=== PATIENT | female | born 1985 | race Caucasian/White ===

== ENCOUNTER 2022-07-01 23:04 | Emergency (ER) | payer OTHER ==
[~2022-07-01] VITALS: Ht 154.9 cm; Wt 68.0 kg
--- NOTE | 2022-07-01 23:10 | NUR ---
DR Polk at bedside MSE in progress
[2022-07-01 23:55] LABS: HEMATOCRIT 35.6 % (31.2-41.9); MEAN CORPUSCULAR HEMOGLOBIN 30.1 uug (24.7-32.8); MEAN CORPUSCULAR VOLUME 91.2 fL (75.5-95.3); PLATELET COUNT (AUTO) 297 K/uL (179-408)
[2022-07-02 00:04] LABS: CARBON DIOXIDE 28 mmol/L (21-32); CHLORIDE 107 mmol/L (98-107); CREATININE 0.8 mg/dL (0.6-1.3); ETHANOL < 3 MG/DL (0-0); GLUCOSE 97 mg/dL (74-106); POTASSIUM 4.3 mmol/L (3.5-5.1); UREA NITROGEN, BLOOD 10 mg/dL (7-18)
[2022-07-02 00:08] LABS: ACETAMINOPHEN 2.5 ug/mL (10-30); ALANINE AMINOTRANSFERASE 10 U/L (14-59); ALKALINE PHOSPHATASE 62 U/L (50-136); ASPARTATE AMINOTRANSFERASE 10 U/L (15-37); BILIRUBIN,DIRECT 0.1 mg/dL (0.0-0.2); BILIRUBIN,TOTAL 0.2 mg/dL (0.2-1.0); CREATINE KINASE, TOTAL 84 U/L (26-192); TOTAL PROTEIN, SERUM 7.2 g/dL (6.4-8.2)
[2022-07-02 00:50] LABS: *BLOOD, URINE 3+ (NEGATIVE); *KETONES,URINE NEGATIVE (NEGATIVE); LEUKOCYTE ESTERASE ,URINE 3+ (NEGATIVE); NITRITE, URINE NEGATIVE (NEGATIVE); PH,URINE 6.5 (5.0-8.0); UGLUCOSE NEGATIVE (NEGATIVE)
[2022-07-02 00:52] LABS: *AMPHETAMINE, URINE POSITIVE (NEGATIVE); *CANNABINOID, URINE NEGATIVE (NEGATIVE); *COCCAINE, URINE NEGATIVE (NEGATIVE); *OPIATE, URINE NEGATIVE (NEGATIVE); *PHENCYCLIDINE SCREEN,URINE NEGATIVE (NEGATIVE)
[2022-07-02 00:58] LABS: *BILIRUBIN,URIN 1+ (NEGATIVE); *CLARITY,URINE CLOUDY (CLEAR); *COLOR,URINE RED (YELLOW)
--- NOTE | 2022-07-02 00:59 | NUR ---
Called drying tumbler operator Juan Antonio for psych eval
[2022-07-02 01:17] LABS: BACTERIA,URINE MANY /HPF (NONE SEEN); RBC,URINE TNTC /HPF (0-3); SQUAMOUS EPITHELIAL CELL,UR FEW /HPF (NONE SEEN); WBC,URINE TNTC /HPF (0-3)
[2022-07-02 01:18] LABS: *URINE HCG, QUAL NEGATIVE (NEGATIVE)
--- NOTE | 2022-07-02 01:32 | NUR ---
hearing aid technician Juan Antonio at bedside, psych eval in progress
[2022-07-02] MEDS ORDERED: NITR100C11 PO (03:18)
[2022-07-02] MEDS ORDERED: LIDOCAINE HCL 1% 20 ML VIAL ONE (03:25)
[2022-07-02] MEDS ORDERED: CEFTRIAXONE 500 MG VIAL ONE (03:27)
[2022-07-02] MEDS ORDERED: AZITHROMYCIN 250 MG TABLET ONE (03:28)
[2022-07-02] MEDS ORDERED: AZITHROMYCIN 250 MG TABLET PO ONE (03:30)
[2022-07-02] MEDS ORDERED: CEFTRIAXONE 500 MG VIAL IM ONE (03:30)
--- NOTE | 2022-07-02 03:49 | NUR ---
Patient discharged to home in stable condition. Written and verbal after care instructions given. Patient verbalizes understanding of instructions. Stressed follow up or return to ER for worsening s/s. Patient walked out with steady gait.
[2022-07-02 03:51] VITALS: BP 131/75
== END 2022-07-02 03:52 | disposition home or self-care (01) ==
LOC: ER 23:04
DX: T40.421A Poisoning by tramadol, accidental (unintentional), initial encounter (principal); R40.0 Somnolence; Y92.410 Unspecified street and highway as the place of occurrence of the external cause; N39.0 Urinary tract infection, site not specified; G50.0 Trigeminal neuralgia; Z88.1 Allergy status to other antibiotic agents
CPT/HCPCS: 80076; 80048; 82550; 85025; 36415; 93005; 80299; 80320; 80307; 81001; 84703; 99285; 96372; J0696; J3490; G0480; Q0144